=== PATIENT | female | born 1965 | race Caucasian/White ===

== ENCOUNTER 2016-11-07 12:05 | Emergency (ER) | payer MEDICAID ==
[~2016-11-07] VITALS: Ht 162.6 cm; Wt 54.0 kg
[2016-11-07] MEDS ORDERED: KETOROLAC 30 MG/1 ML ONE (13:14)
[2016-11-07 13:21] LABS: HEMOGLOBIN 12.7 g/dL (11.7-16.4)
[2016-11-07] MEDS ORDERED: KETOROLAC 30 MG/1 ML IM ONE (13:30)
[2016-11-07 13:32] LABS: ASPARTATE AMINO TRANSFERASE 158 U/L (15-37); BLOOD UREA NITROGEN 6 mg/dL (7-18)
[2016-11-07 13:37] LABS: IS PT STATUS REG ER OR PRE ER? YES
[2016-11-07 14:36] VITALS: BP 137/82
== END 2016-11-07 14:38 | disposition home or self-care (01) ==
LOC: ED 14:25
DX: R07.89 Other chest pain (principal); G89.29 Other chronic pain; M54.12 Radiculopathy, cervical region; J45.909 Unspecified asthma, uncomplicated; R07.1 Chest pain on breathing
CPT/HCPCS: 36415; 71020; 80053; 83690; 83880; 84484; 85025; 85379; 93005; 96372; 99285; J1885

== ENCOUNTER 2017-04-13 13:25 | Emergency (ER) | payer MEDICAID ==
[~2017-04-13] VITALS: Ht 165.1 cm; Wt 52.7 kg
[2017-04-13 14:47] LABS: HEMATOCRIT 36.6 % (34.6-47.8); HEMOGLOBIN 12.6 g/dL (11.7-16.4); WHITE BLOOD COUNT 11.6 x10^3/uL (3.4-10)
[2017-04-13 14:59] LABS: ASPARTATE AMINO TRANSFERASE 178 U/L (15-37); BLOOD UREA NITROGEN 11 mg/dL (7-18)
[2017-04-13] MEDS ORDERED: OMNIPAQUE 350 MG/ML, 100ML BOTTLE ONE (15:00)
[2017-04-13] MEDS ORDERED: SODIUM CHLORIDE FLUSH 10ML SYR IVF ONE (15:30)
[2017-04-13 18:00] VITALS: BP 110/71
[2017-04-13] MEDS ORDERED: CHLORDIAZEPOXIDE 25 MG CAPSULE PO ONE (18:30)
== END 2017-04-13 19:51 | disposition home or self-care (01) ==
LOC: ED 15:28
DX: S20.01XA Contusion of right breast, initial encounter (principal); T74.21XA Adult sexual abuse, confirmed, initial encounter; J45.909 Unspecified asthma, uncomplicated; Z59.0 Homelessness; Y04.0XXA Assault by unarmed brawl or fight, initial encounter; Y93.89 Activity, other specified; Y92.818 Other transport vehicle as the place of occurrence of the external cause; Y99.8 Other external cause status
CPT/HCPCS: 36415; 74177; 80053; 80307; 83690; 85025; 99285; Q9967

== ENCOUNTER 2017-07-02 18:58 | Inpatient (IN) | payer MEDICAID ==
[~2017-07-02] VITALS: Ht 160 cm; Wt 52.6 kg
[2017-07-02] MEDS: OCTREOTIDE 500 MCG in SODIUM CHLORIDE 0.9% 249 ML IV SCH (02:30)
[~2017-07-02 18:58] MED LIST: EPINEPHRINE SYRINGE 0.1 MG/ML, 10ML ONE; ETOMIDATE 20 MG/10 ML ONE; PROPOFOL 10 MG/ML, 100ML IV ONE; SUCCINYLCHOLINE 20 MG/ML, 10ML ONE; VECURONIUM 10 MG ONE
[2017-07-02] MEDS ORDERED: PANTOPRAZOLE 80 MG in SODIUM CHLORIDE 0.9% 100 ML IV SCH (19:18)
[2017-07-02] MEDS ORDERED: SODIUM CHLORIDE 0.9% 1,000 ML IV ONE (19:18)
[2017-07-02] MEDS ORDERED: PANTOPRAZOLE 80 MG in SODIUM CHLORIDE 0.9% 50 ML IVPB ONE (19:18)
[2017-07-02] MEDS ORDERED: ONDANSETRON 2MG/ML, 2ML IVPush ONE (19:30)
[2017-07-02] MEDS ORDERED: PLEASE ENTER HEIGHT AND WEIGHT MC SCH (19:30)
[2017-07-02] MEDS ORDERED: SODIUM CHLORIDE FLUSH 10ML SYR IVF ONE (19:30)
[2017-07-02] MEDS ORDERED: SODIUM CHLORIDE 0.9% 1,000ML IVBOLUS ONE ×2 (19:30→22:00)
[2017-07-02 20:15] LABS: HEMATOCRIT 19.2 % (34.6-47.8); HEMOGLOBIN 6.3 g/dL (11.7-16.4)
[2017-07-02 20:19] LABS: ASPARTATE AMINO TRANSFERASE 98 U/L (15-37); BLOOD UREA NITROGEN 78 mg/dL (7-18)
[2017-07-02] MEDS ORDERED: OCTREOTIDE 50 MCG/ML, 1ML (0.05MG/ML) IVPush ONE (20:30)
[2017-07-02] MEDS: CIPROFLOXACIN LACTATE 200 MG in DEXTROSE 5% 100 ML IV SCH (20:30)
[2017-07-02 20:45] LABS: DIFF TOTAL CELLS COUNTED 100 CELL DIFF
[2017-07-02 20:49] LABS: ANISOCYTOSIS 1+; VERIFY COUNTS? YES
[2017-07-02 20:50] LABS: POLYCHROMASIA 1+
[2017-07-02 20:51] LABS: LARGE PLATELETS 2+
[2017-07-02 22:16] LABS: ABG COLLECTION SITE RIGHT BRACHIAL
[2017-07-02] MEDS ORDERED: LORazepam 2 MG/ML, 1ML IVPush ONE (22:30)
[2017-07-02] MEDS ORDERED: CEFTRIAXONE PMX 1GM/50ML 50 ML IV ONE (22:30)
[2017-07-02] MEDS ORDERED: LORazepam 2 MG/ML, 1ML ONE (22:31)
[2017-07-02] MEDS ORDERED: CEFTRIAXONE PMX 1GM/50ML 50 ML ONE (22:44)
[2017-07-02 23:08] LABS: DAU SCREEN DISCLAIMER
[2017-07-02 23:29] VITALS: BP 136/72
[2017-07-02 23:45] VITALS: BP 136/72
[2017-07-02] MEDS ORDERED: MIDAZOLAM HCL 25 MG in SODIUM CHLORIDE 0.9% 245 ML IV PRN (23:45)
[2017-07-03] VITALS (20 sets, daily range): BP systolic 80–199; BP diastolic 36–76
[2017-07-03] MEDS ORDERED: ETOMIDATE 20 MG/10 ML IV ONE
[2017-07-03] MEDS ORDERED: SUCCINYLCHOLINE 20 MG/ML, 10ML IVPush ONE
[2017-07-03] MEDS ORDERED: VECURONIUM 10 MG IVPush ONE
[2017-07-03] MEDS ORDERED: PROPOFOL 100 ML IV PRN (01:06)
[2017-07-03] MEDS ORDERED: CEFTRIAXONE PMX 1GM/50ML 50 ML IV SCH ×2 (01:30→10:00)
[2017-07-03] MEDS ORDERED: LACTATED RINGERS 1,000 ML IV SCH (01:30)
[2017-07-03] MEDS ORDERED: LIDOCAINE-MPF 1%, 2ML ENDO PRN (01:30)
[2017-07-03] MEDS ORDERED: ONDANSETRON 2MG/ML, 2ML IVPush PRN (01:30)
[2017-07-03] MEDS ORDERED: PHARMACY MAY ADJ FOR RENAL FX MC SCH (01:30)
[2017-07-03] MEDS ORDERED: ACETAMINOPHEN 650 MG/20.3 ML UDC NG PRN (01:30)
[2017-07-03] MEDS ORDERED: CEFTRIAXONE PMX 1GM/50ML 50 ML ONE (02:13)
[2017-07-03 03:26] LABS: ABG COLLECTION SITE LEFT RADIAL; COLLATERAL CIRCULATION TESTING NORMAL
[2017-07-03] MEDS ORDERED: SODIUM BICARB 8.4%, 50ML SYRINGE ONE ×2 (04:18→14:47)
[2017-07-03] MEDS: SODIUM BICARB 8.4%, 50ML SYRINGE IVPush SCH ×3 (04:30→15:07)
[2017-07-03] MEDS: SODIUM BICARBONATE 8.4% 150 MEQ in DEXTROSE 5% 1,000 ML IV SCH ×2 (04:30→15:05)
[2017-07-03 04:34] LABS: ABG COLLECTION SITE RIGHT RADIAL; COLLATERAL CIRCULATION TESTING NORMAL
[2017-07-03 04:37] LABS: HEMATOCRIT 23.5 % (34.6-47.8); WHITE BLOOD COUNT 33.7 x10^3/uL (3.4-10)
[2017-07-03 04:55] LABS: ASPARTATE AMINO TRANSFERASE 440 U/L (15-37); BLOOD UREA NITROGEN 68 mg/dL (7-18)
[2017-07-03 04:59] LABS: DIFF TOTAL CELLS COUNTED 100 CELL DIFF
[2017-07-03 05:03] LABS: VERIFY COUNTS? YES
[2017-07-03 05:04] LABS: ANISOCYTOSIS 1+; LARGE PLATELETS 1+; POLYCHROMASIA 1+
[2017-07-03 05:27] LABS: PTT 54 Seconds (25-31)
[2017-07-03 05:28] LABS: FIBRINOGEN 156 mg/dL (200-340)
[2017-07-03] MEDS ORDERED: ALBUMIN HUMAN 25% 50 ML IV SCH (06:00)
[2017-07-03] MEDS ORDERED: NOREPINEPHRINE 4 MG in SODIUM CHLORIDE 0.9% 246 ML IV PRN (06:00)
[2017-07-03] MEDS: ALBUTEROL/IPRATROPIUM 2.5MG/0.5MG, 3 ML INLINE SCH ×3 (06:26→14:00)
[2017-07-03] MEDS ORDERED: ALBUTEROL/IPRATROPIUM 2.5MG/0.5MG, 3 ML ONE (06:28)
[2017-07-03] MEDS ORDERED: PANTOPRAZOLE 40 MG IV IVPush SCH (07:30)
[2017-07-03] MEDS ORDERED: VASOPRESSIN 100 UNIT in SODIUM CHLORIDE 0.9% 495 ML IV PRN (08:30)
[2017-07-03 08:31] LABS: ABG COLLECTION SITE RIGHT RADIAL; COLLATERAL CIRCULATION TESTING NORMAL
[2017-07-03] MEDS ORDERED: NOREPINEPHRINE 16 MG in SODIUM CHLORIDE 0.9% 234 ML IV PRN (09:00)
[2017-07-03] MEDS: OCTREOTIDE 500 MCG in SODIUM CHLORIDE 0.9% 249 ML IV SCH (10:35)
[2017-07-03] MEDS: CIPROFLOXACIN LACTATE 200 MG in DEXTROSE 5% 100 ML IV SCH (10:36)
[2017-07-03] MEDS ORDERED: PHENYLEPHRINE 20 MG in SODIUM CHLORIDE 0.9% 248 ML IV PRN (11:00)
[2017-07-03] MEDS ORDERED: HYDROCORTISONE 100 MG INJ. IVPush SCH (12:00)
[2017-07-03 14:28] LABS: ABG COLLECTION SITE RIGHT BRACHIAL
[2017-07-03] MEDS ORDERED: SODIUM BICARBONATE 1 MEQ/ML, 50ML VIAL IVPush ONE ×2 (14:30→15:00)
[2017-07-03] MEDS ORDERED: SODIUM BICARB 8.4%, 50ML SYRINGE IVPush ONE ×3 (15:10→15:30)
[2017-07-03] MEDS ORDERED: morphine SULFATE 10 MG/ML, 1ML IVPush PRN ×2 (17:30)
[2017-07-03] MEDS ORDERED: LORazepam 2 MG/ML, 1ML ONE (17:30)
[2017-07-03] MEDS ORDERED: LORazepam 2 MG/ML, 1ML IVPush PRN ×2 (17:30)
[2017-07-03] MEDS ORDERED: morphine SULFATE 10 MG/ML, 1ML ONE (17:30)
[2017-07-04] MEDS ORDERED: PHYTONADIONE 10 MG/ML, 1ML SQ SCH (09:00)
== END 2017-07-03 20:00 | disposition expired | DRG 377 ==
LOC: ED 22:04 → EDIP 22:11 → CCU 07-03 07:57
PROVIDERS: ADMIT Hospitalist; ATTEND Hospitalist
PROC: 30233N1 Transfusion of Nonautologous Red Blood Cells into Peripheral Vein, Percutaneous Approach (ICD-10-PCS; 2017-07-02)
PROC: 5A1935Z Respiratory Ventilation, Less than 24 Consecutive Hours (ICD-10-PCS; principal; 2017-07-03)
PROC: 0BH17EZ Insertion of Endotracheal Airway into Trachea, Via Natural or Artificial Opening (ICD-10-PCS; 2017-07-03)
PROC: 30233L1 Transfusion of Nonautologous Fresh Plasma into Peripheral Vein, Percutaneous Approach (ICD-10-PCS; 2017-07-03)
PROC: 30233K1 Transfusion of Nonautologous Frozen Plasma into Peripheral Vein, Percutaneous Approach (ICD-10-PCS; 2017-07-03)
PROC: 02HV33Z Insertion of Infusion Device into Superior Vena Cava, Percutaneous Approach (ICD-10-PCS; 2017-07-03)
PROC: B548ZZA Ultrasonography of Superior Vena Cava, Guidance (ICD-10-PCS; 2017-07-03)
DX: K92.2 Gastrointestinal hemorrhage, unspecified (principal); E43 Unspecified severe protein-calorie malnutrition; J96.00 Acute respiratory failure, unspecified whether with hypoxia or hypercapnia; R57.1 Hypovolemic shock; G93.41 Metabolic encephalopathy; D68.9 Coagulation defect, unspecified; E87.1 Hypo-osmolality and hyponatremia; N17.9 Acute kidney failure, unspecified; D62 Acute posthemorrhagic anemia; E87.2 Acidosis; R65.10 Systemic inflammatory response syndrome (SIRS) of non-infectious origin without acute organ dysfunction; F17.210 Nicotine dependence, cigarettes, uncomplicated; J45.909 Unspecified asthma, uncomplicated; M54.12 Radiculopathy, cervical region; K92.0 Hematemesis; B96.81 Helicobacter pylori [H. pylori] as the cause of diseases classified elsewhere; D72.825 Bandemia; I95.89 Other hypotension; K70.30 Alcoholic cirrhosis of liver without ascites; F19.10 Other psychoactive substance abuse, uncomplicated; Z68.20 Body mass index [BMI] 20.0-20.9, adult; Z59.0 Homelessness
CPT/HCPCS: 36415; 36600; 71010; 74000; 76700; 80053; 80307; 82140; 82533; 82803; 83605; 83690; 83735; 84100; 84478; 84703; 85018; 85025; 85049; 85379; 85384; 85610; 85730; 86677; 86850; 86900; 86923; 87040; 87081; 93005; 94002; 94003; J0696; J2354; J2704; J7070; J7620; P9047; C9113; G0479; J0330; J0744; J1720; J2060; J2270; J2370; J7030; J7050; J7120; P9016; P9017